=== PATIENT | male | born 1985 | race African-American/Black ===

== ENCOUNTER 2017-06-25 21:00 | Inpatient (IN) | payer MEDICAID ==
[2017-06-25] MEDS ORDERED: 0.9 % SODIUM CHLORIDE 10 ML DISP.SYRIN. IV (22:15)
[2017-06-25] MEDS: DULoxetine HCL 30 MG CAPSULE.DR PO (23:02)
[2017-06-25] MEDS: BACLOFEN 10 MG TABLET. PO (23:02)
[2017-06-25] MEDS: SERTRALINE 50 MG TABLET. PO (23:03)
[2017-06-25] MEDS: GABAPENTIN 300 MG CAPSULE. PO (23:03)
[2017-06-25] MEDS: traZODone 100 MG TABLET. PO (23:03)
[2017-06-25] MEDS: OXYBUTYNIN CHLORIDE 5 MG TABLET PO (23:03)
[2017-06-25] MEDS: risperiDONE 1 MG TABLET. PO (23:03)
[2017-06-25] MEDS: tiZANidine 4 MG TABLET. PO (23:04)
[2017-06-25] MEDS: oxyCODONE IR 5 MG TABLET PO (23:12)
[2017-06-26] MEDS: oxyCODONE IR 5 MG TABLET PO ×4 (04:05→22:44)
[2017-06-26] MEDS: BACLOFEN 10 MG TABLET. PO ×4 (08:22→21:19)
[2017-06-26] MEDS: GABAPENTIN 300 MG CAPSULE. PO ×4 (08:22→21:20)
[2017-06-26] MEDS: OXYBUTYNIN CHLORIDE 5 MG TABLET PO ×3 (08:22→21:20)
[2017-06-26] MEDS: LIDOCAINE (700MG/PATCH) PATCH. TP (08:23)
[2017-06-26] MEDS: tiZANidine 4 MG TABLET. PO ×2 (08:23→21:20)
[2017-06-26] MEDS: DULoxetine HCL 30 MG CAPSULE.DR PO ×2 (08:23→21:19)
[2017-06-26 09:46] LABS: ADD MAN DIFF? NO
[2017-06-26 10:06] LABS: BASO % 1 % (0-3); EOS # 0.1 x10^3/uL (0.0-0.7); EOS % 2 % (0-3); HEMATOCRIT 35.5 % (39.0-53.0); HEMOGLOBIN 11.3 g/dL (13.0-17.5); LYMPH # 0.9 x10^3/uL (1.0-4.8); LYMPH % 12 % (24-48); MEAN CORPUSCULAR HEMOGLOBIN 27 pg (25-35); MEAN CORPUSCULAR HGB CONC 32 g/dL (31-37); MEAN CORPUSCULAR VOLUME 84 fL (79-100); MONO # 0.7 x10^3/uL (0.0-1.1); MONO % 9 % (0-9); NEUT # 5.8 x10^3uL (1.8-7.7); NEUT % 77 % (31-73); PLATELET COUNT 344 x10^3/uL (140-400); RED BLOOD COUNT 4.24 x10^6/uL (4.30-5.70); RED CELL DISTRIBUTION WIDTH 17.4 % (11.5-14.5); WHITE BLOOD COUNT 7.6 x10^3/uL (4.0-11.0)
[2017-06-26 10:09] LABS: ANION GAP 10 (6-14); BLOOD UREA NITROGEN 6 mg/dL (8-26); CALCIUM 8.2 mg/dL (8.5-10.1); CARBON DIOXIDE 27 mmol/L (21-32); CHLORIDE 101 mmol/L (98-107); CREATININE 0.7 mg/dL (0.7-1.3); GFR 157.2; GLUCOSE 79 mg/dL (70-99); POTASSIUM 3.7 mmol/L (3.5-5.1); SODIUM 138 mmol/L (136-145)
[2017-06-26] MEDS ORDERED: VANCOMYCIN 1GM IVPB FOR OMNI 250 ML IV (10:30)
[2017-06-26] MEDS ORDERED: fentaNYL PF VIAL 100 MCG/2 ML VIAL IV (10:45)
[2017-06-26 10:57] LABS: SEDIMENTATION RATE 82 (0-15)
[2017-06-26] MEDS: DRONABINOL 2.5 MG CAPSULE. PO ×2 (11:03→16:19)
[2017-06-26] MEDS: MORPHINE SULFATE 2 MG/ML DISP.SYRIN. IV ×2 (11:03→12:55)
[2017-06-26] MEDS: VANCOMYCIN 1 GM in IV 1/2 NORMAL SALINE 250 ML IV (11:06)
[2017-06-26] MEDS: MEROPENEM IV Push 1 GM VIAL. IVP ×2 (13:02→22:43)
[2017-06-26 13:13] LABS: MRSA BY PCR Positive (Negative)
[2017-06-26] MEDS ORDERED: MEROPENEM 1 GM in IV NORMAL SALINE 100ML 100 ML IV (14:00)
[2017-06-26] MEDS: VANCOMYCIN PER PHARMACY MC (16:51)
[2017-06-26] MEDS: ENOXAPARIN 40 MG/0.4 ML SYRINGE. SQ (18:00)
[2017-06-26] MEDS: LACTOBACILLUS RHAMNOSUS GG 1 CAPSULE. PO (20:23)
[2017-06-26] MEDS: oxyCODONE ER 10 MG TAB.ER.12H PO (20:24)
[2017-06-26] MEDS ORDERED: LACTOBACILLUS RHAMNOSUS GG 1 CAPSULE. PO (21:00)
[2017-06-26] MEDS ORDERED: oxyCODONE ER 10 MG TAB.ER.12H PO (21:00)
[2017-06-26] MEDS: SERTRALINE 50 MG TABLET. PO (21:19)
[2017-06-26] MEDS: traZODone 100 MG TABLET. PO (21:19)
[2017-06-26] MEDS: risperiDONE 1 MG TABLET. PO (21:20)
[2017-06-26] MEDS: VANCOMYCIN 1.5 GM in IV DEXTROSE 5 %-0.2 % NACL 500 ML IV (21:22)
[2017-06-27] MEDS: MORPHINE SULFATE 2 MG/ML DISP.SYRIN. IV ×2 (01:38→21:38)
[2017-06-27] MEDS: MEROPENEM IV Push 1 GM VIAL. IVP ×3 (05:25→23:36)
[2017-06-27] MEDS: VANCOMYCIN 1.5 GM in IV DEXTROSE 5 %-0.2 % NACL 500 ML IV ×2 (09:21→20:49)
[2017-06-27] MEDS: LACTOBACILLUS RHAMNOSUS GG 1 CAPSULE. PO ×2 (09:24→20:47)
[2017-06-27] MEDS: BACLOFEN 10 MG TABLET. PO ×4 (09:24→20:46)
[2017-06-27] MEDS: DULoxetine HCL 30 MG CAPSULE.DR PO ×2 (09:24→20:46)
[2017-06-27] MEDS: GABAPENTIN 300 MG CAPSULE. PO ×4 (09:24→20:48)
[2017-06-27] MEDS: tiZANidine 4 MG TABLET. PO ×2 (09:25→20:48)
[2017-06-27] MEDS: OXYBUTYNIN CHLORIDE 5 MG TABLET PO ×3 (09:25→20:48)
[2017-06-27] MEDS: oxyCODONE ER 10 MG TAB.ER.12H PO ×2 (09:26→20:47)
[2017-06-27] MEDS: LIDOCAINE (700MG/PATCH) PATCH. TP (09:26)
[2017-06-27] MEDS: oxyCODONE IR 5 MG TABLET PO ×2 (09:30→18:34)
[2017-06-27] MEDS: DRONABINOL 2.5 MG CAPSULE. PO ×2 (13:08→18:34)
[2017-06-27] MEDS: KETOROLAC 15 MG/ML VIAL. IV (13:12)
[2017-06-27] MEDS: VANCOMYCIN PER PHARMACY MC ×2 (13:57→21:22)
[2017-06-27] MEDS: ENOXAPARIN 40 MG/0.4 ML SYRINGE. SQ (18:00)
[2017-06-27 20:39] LABS: VANC TR 10.4 mcg/mL (10.0-20.0)
[2017-06-27] MEDS: traZODone 100 MG TABLET. PO (20:46)
[2017-06-27] MEDS: risperiDONE 1 MG TABLET. PO (20:47)
[2017-06-27] MEDS: SERTRALINE 50 MG TABLET. PO (20:48)
[2017-06-27] MEDS: DOCUSATE SODIUM 100 MG CAPSULE. PO (21:36)
[2017-06-27] MEDS: MAGNESIUM HYDROXIDE 2,400 MG/30 ML ORAL.SUSP. PO (21:36)
[2017-06-28 05:13] LABS: ADD MAN DIFF? NO
[2017-06-28 05:56] LABS: ANION GAP 7 (6-14); BLOOD UREA NITROGEN 5 mg/dL (8-26); CARBON DIOXIDE 30 mmol/L (21-32); CHLORIDE 105 mmol/L (98-107); CREATININE 0.8 mg/dL (0.7-1.3); GFR 134.7; GLUCOSE 56 mg/dL (70-99); POTASSIUM 4.2 mmol/L (3.5-5.1); SODIUM 142 mmol/L (136-145)
[2017-06-28 06:09] LABS: BASO % 0 % (0-3); EOS # 0.2 x10^3/uL (0.0-0.7); EOS % 4 % (0-3); HEMATOCRIT 33.8 % (39.0-53.0); HEMOGLOBIN 10.8 g/dL (13.0-17.5); LYMPH # 1.3 x10^3/uL (1.0-4.8); LYMPH % 26 % (24-48); MEAN CORPUSCULAR HEMOGLOBIN 27 pg (25-35); MEAN CORPUSCULAR HGB CONC 32 g/dL (31-37); MEAN CORPUSCULAR VOLUME 84 fL (79-100); MONO # 0.4 x10^3/uL (0.0-1.1); MONO % 8 % (0-9); NEUT # 3.2 x10^3uL (1.8-7.7); NEUT % 63 % (31-73); PLATELET COUNT 330 x10^3/uL (140-400); RED BLOOD COUNT 4.02 x10^6/uL (4.30-5.70); RED CELL DISTRIBUTION WIDTH 17.4 % (11.5-14.5); WHITE BLOOD COUNT 5.1 x10^3/uL (4.0-11.0)
[2017-06-28] MEDS: MORPHINE SULFATE 2 MG/ML DISP.SYRIN. IV ×3 (06:22→19:48)
[2017-06-28] MEDS: MEROPENEM IV Push 1 GM VIAL. IVP ×3 (06:30→21:44)
[2017-06-28] MEDS ORDERED: ONDANSETRON PF 4 MG/2 ML VIAL. IV (07:00)
[2017-06-28] MEDS ORDERED: PROCHLORPERAZINE 10 MG/2 ML VIAL. IV (07:00)
[2017-06-28] MEDS ORDERED: fentaNYL PF VIAL 100 MCG/2 ML VIAL IV (07:00)
[2017-06-28] MEDS ORDERED: MORPHINE SULFATE 2 MG/ML DISP.SYRIN. IV (07:00)
[2017-06-28] MEDS ORDERED: IV RINGERS,LACTATED 1000ML 1,000 ML IV (07:00)
[2017-06-28] MEDS: VANCOMYCIN 2 GM in IV DEXTROSE 5 %-0.2 % NACL 500 ML IV ×2 (07:31→18:24)
[2017-06-28] MEDS: OXYBUTYNIN CHLORIDE 5 MG TABLET PO ×3 (08:27→21:42)
[2017-06-28] MEDS: GABAPENTIN 300 MG CAPSULE. PO ×4 (08:27→21:42)
[2017-06-28] MEDS: tiZANidine 4 MG TABLET. PO ×2 (08:27→21:42)
[2017-06-28] MEDS: LACTOBACILLUS RHAMNOSUS GG 1 CAPSULE. PO ×2 (08:28→21:41)
[2017-06-28] MEDS: DOCUSATE SODIUM 100 MG CAPSULE. PO ×2 (08:28→09:00)
[2017-06-28] MEDS: BACLOFEN 10 MG TABLET. PO ×4 (08:28→21:43)
[2017-06-28] MEDS: DULoxetine HCL 30 MG CAPSULE.DR PO ×2 (08:28→21:42)
[2017-06-28] MEDS: oxyCODONE ER 10 MG TAB.ER.12H PO ×2 (08:29→21:44)
[2017-06-28] MEDS: LIDOCAINE (700MG/PATCH) PATCH. TP (09:00)
[2017-06-28] MEDS: DRONABINOL 2.5 MG CAPSULE. PO ×2 (11:30→17:18)
[2017-06-28] MEDS ORDERED: ONDANSETRON PF 4 MG/2 ML VIAL. (11:55)
[2017-06-28] MEDS ORDERED: PROPOFOL 20 ML IV (11:55)
[2017-06-28] MEDS ORDERED: fentaNYL PF VIAL 100 MCG/2 ML VIAL ×2 (11:55→14:44)
[2017-06-28] MEDS ORDERED: MIDAZOLAM HCL/PF 2 MG/2 ML VIAL. (11:55)
[2017-06-28] MEDS ORDERED: DEXAMETHASONE SOD PHOS 20 MG/5 ML VIAL. (11:55)
[2017-06-28] MEDS ORDERED: LIDOCAINE 2% PF Vial for OR 5 ML VIAL. (11:55)
[2017-06-28] MEDS: LIDOCAINE 1% PF 2 ML VIAL. ID (12:50)
[2017-06-28] MEDS: IV RINGERS,LACTATED 1000ML 1,000 ML IV (13:00)
[2017-06-28] MEDS ORDERED: SEVOFLURANE 61 TO 120 MINUTES. IH (13:54)
[2017-06-28] MEDS ORDERED: PHENYLEPHRINE in 0.9% NACL PF 1 MG/10 ML SYRINGE. IV (14:08)
[2017-06-28] MEDS: fentaNYL PF VIAL 100 MCG/2 ML VIAL IV ×2 (14:49→14:54)
[2017-06-28] MEDS ORDERED: HYDROmorphone 2 MG/ML VIAL (15:01)
[2017-06-28] MEDS: HYDROmorphone 2 MG/ML VIAL IV ×4 (15:05→15:25)
[2017-06-28] MEDS: VANCOMYCIN PER PHARMACY MC (15:45)
[2017-06-28] MEDS: IV NORMAL SALINE 1000ML BAG 1,000 ML IV (16:06)
[2017-06-28] MEDS: oxyCODONE IR 5 MG TABLET PO (18:29)
[2017-06-28] MEDS: traZODone 100 MG TABLET. PO (21:42)
[2017-06-28] MEDS: risperiDONE 1 MG TABLET. PO (21:42)
[2017-06-28] MEDS: SERTRALINE 50 MG TABLET. PO (21:43)
[2017-06-29] MEDS: oxyCODONE IR 5 MG TABLET PO ×4 (02:18→22:03)
[2017-06-29] MEDS: MEROPENEM IV Push 1 GM VIAL. IVP ×3 (06:42→21:16)
[2017-06-29] MEDS: VANCOMYCIN 2 GM in IV DEXTROSE 5 %-0.2 % NACL 500 ML IV ×2 (06:43→19:16)
[2017-06-29 06:45] LABS: ADD MAN DIFF? NO
[2017-06-29] MEDS: MORPHINE SULFATE 2 MG/ML DISP.SYRIN. IV ×2 (06:54→19:17)
[2017-06-29 06:57] LABS: BASO % 0 % (0-3); EOS % 0 % (0-3); HEMATOCRIT 32.5 % (39.0-53.0); HEMOGLOBIN 10.5 g/dL (13.0-17.5); LYMPH # 1.1 x10^3/uL (1.0-4.8); LYMPH % 14 % (24-48); MEAN CORPUSCULAR HEMOGLOBIN 27 pg (25-35); MEAN CORPUSCULAR HGB CONC 32 g/dL (31-37); MEAN CORPUSCULAR VOLUME 83 fL (79-100); MONO # 0.3 x10^3/uL (0.0-1.1); MONO % 4 % (0-9); NEUT # 6.4 x10^3uL (1.8-7.7); NEUT % 82 % (31-73); PLATELET COUNT 361 x10^3/uL (140-400); RED CELL DISTRIBUTION WIDTH 17.3 % (11.5-14.5); WHITE BLOOD COUNT 7.8 x10^3/uL (4.0-11.0)
[2017-06-29 07:19] LABS: ALBUMIN 1.8 g/dL (3.4-5.0); ANION GAP 6 (6-14); BLOOD UREA NITROGEN 6 mg/dL (8-26); CALCIUM 7.9 mg/dL (8.5-10.1); CARBON DIOXIDE 30 mmol/L (21-32); CHLORIDE 104 mmol/L (98-107); CREATININE 0.7 mg/dL (0.7-1.3); GFR 157.2; GLUCOSE 136 mg/dL (70-99); PHOSPHORUS 3.6 mg/dL (2.6-4.7); POTASSIUM 4.3 mmol/L (3.5-5.1); SODIUM 140 mmol/L (136-145)
[2017-06-29] MEDS: DULoxetine HCL 30 MG CAPSULE.DR PO ×2 (08:51→21:17)
[2017-06-29] MEDS: LACTOBACILLUS RHAMNOSUS GG 1 CAPSULE. PO ×2 (08:52→21:17)
[2017-06-29] MEDS: BACLOFEN 10 MG TABLET. PO ×4 (08:52→21:17)
[2017-06-29] MEDS: GABAPENTIN 300 MG CAPSULE. PO ×4 (08:52→21:17)
[2017-06-29] MEDS: tiZANidine 4 MG TABLET. PO ×2 (08:52→21:16)
[2017-06-29] MEDS: DOCUSATE SODIUM 100 MG CAPSULE. PO (08:52)
[2017-06-29] MEDS: oxyCODONE ER 10 MG TAB.ER.12H PO ×2 (08:52→21:18)
[2017-06-29] MEDS: OXYBUTYNIN CHLORIDE 5 MG TABLET PO ×3 (08:52→21:17)
[2017-06-29] MEDS: ENOXAPARIN 40 MG/0.4 ML SYRINGE. SQ (08:53)
[2017-06-29] MEDS: LIDOCAINE (700MG/PATCH) PATCH. TP (08:53)
[2017-06-29] MEDS: DRONABINOL 2.5 MG CAPSULE. PO ×2 (11:53→16:35)
[2017-06-29] MEDS: VANCOMYCIN PER PHARMACY MC ×2 (15:32→19:30)
[2017-06-29 18:51] LABS: VANC TR 13.9 mcg/mL (10.0-20.0)
[2017-06-29] MEDS: SERTRALINE 50 MG TABLET. PO (21:17)
[2017-06-29] MEDS: risperiDONE 1 MG TABLET. PO (21:17)
[2017-06-29] MEDS: traZODone 100 MG TABLET. PO (21:17)
[2017-06-29] MEDS: MAGNESIUM HYDROXIDE 2,400 MG/30 ML ORAL.SUSP. PO (21:19)
[2017-06-30] MEDS: VANCOMYCIN 1.5 GM in IV DEXTROSE 5 %-0.2 % NACL 500 ML IV ×3 (03:41→19:39)
[2017-06-30 04:59] LABS: ADD MAN DIFF? NO
[2017-06-30 05:11] LABS: BASO % 1 % (0-3); EOS # 0.2 x10^3/uL (0.0-0.7); EOS % 3 % (0-3); HEMATOCRIT 33.4 % (39.0-53.0); HEMOGLOBIN 10.6 g/dL (13.0-17.5); LYMPH # 1.8 x10^3/uL (1.0-4.8); LYMPH % 29 % (24-48); MEAN CORPUSCULAR HEMOGLOBIN 27 pg (25-35); MEAN CORPUSCULAR HGB CONC 32 g/dL (31-37); MEAN CORPUSCULAR VOLUME 84 fL (79-100); MONO # 0.4 x10^3/uL (0.0-1.1); MONO % 7 % (0-9); NEUT # 3.9 x10^3uL (1.8-7.7); NEUT % 62 % (31-73); PLATELET COUNT 323 x10^3/uL (140-400); RED BLOOD COUNT 3.96 x10^6/uL (4.30-5.70); RED CELL DISTRIBUTION WIDTH 17.3 % (11.5-14.5); WHITE BLOOD COUNT 6.4 x10^3/uL (4.0-11.0)
[2017-06-30 05:59] LABS: ANION GAP 7 (6-14); BLOOD UREA NITROGEN 7 mg/dL (8-26); CALCIUM 8.3 mg/dL (8.5-10.1); CARBON DIOXIDE 32 mmol/L (21-32); CHLORIDE 103 mmol/L (98-107); CREATININE 0.8 mg/dL (0.7-1.3); GFR 134.7; GLUCOSE 135 mg/dL (70-99); POTASSIUM 3.6 mmol/L (3.5-5.1); SODIUM 142 mmol/L (136-145)
[2017-06-30] MEDS: oxyCODONE IR 5 MG TABLET PO ×3 (06:04→20:56)
[2017-06-30] MEDS: MEROPENEM IV Push 1 GM VIAL. IVP ×3 (06:04→20:55)
[2017-06-30 07:10] LABS: SEDIMENTATION RATE 45 (0-15)
[2017-06-30] MEDS: OXYBUTYNIN CHLORIDE 5 MG TABLET PO ×3 (08:48→20:57)
[2017-06-30] MEDS: LACTOBACILLUS RHAMNOSUS GG 1 CAPSULE. PO ×2 (08:48→20:56)
[2017-06-30] MEDS: DULoxetine HCL 30 MG CAPSULE.DR PO ×2 (08:49→20:56)
[2017-06-30] MEDS: oxyCODONE ER 10 MG TAB.ER.12H PO ×2 (08:49→20:56)
[2017-06-30] MEDS: BACLOFEN 10 MG TABLET. PO ×4 (08:49→20:55)
[2017-06-30] MEDS: GABAPENTIN 300 MG CAPSULE. PO ×4 (08:49→20:55)
[2017-06-30] MEDS: tiZANidine 4 MG TABLET. PO ×2 (08:49→20:57)
[2017-06-30] MEDS: ENOXAPARIN 40 MG/0.4 ML SYRINGE. SQ (08:52)
[2017-06-30] MEDS: DOCUSATE SODIUM 100 MG CAPSULE. PO (08:54)
[2017-06-30] MEDS: LIDOCAINE (700MG/PATCH) PATCH. TP (08:54)
[2017-06-30] MEDS: DRONABINOL 2.5 MG CAPSULE. PO ×2 (11:39→16:27)
[2017-06-30] MEDS: VANCOMYCIN PER PHARMACY MC (13:45)
[2017-06-30] MEDS: IBUPROFEN 600 MG TABLET. PO ×2 (14:17→20:57)
[2017-06-30] MEDS: MORPHINE SULFATE 2 MG/ML DISP.SYRIN. IV (14:18)
[2017-06-30] MEDS: BISACODYL 10 MG SUPP.RECT. PR (17:35)
[2017-06-30] MEDS: risperiDONE 1 MG TABLET. PO (20:55)
[2017-06-30] MEDS: SERTRALINE 50 MG TABLET. PO (20:55)
[2017-06-30] MEDS: traZODone 100 MG TABLET. PO (20:57)
[2017-07-01] MEDS: VANCOMYCIN 1.5 GM in IV DEXTROSE 5 %-0.2 % NACL 500 ML IV ×3 (03:21→21:02)
[2017-07-01] MEDS: MEROPENEM IV Push 1 GM VIAL. IVP ×3 (05:53→21:02)
[2017-07-01] MEDS: oxyCODONE IR 5 MG TABLET PO ×2 (05:54→17:06)
[2017-07-01] MEDS ORDERED: SURGICEL HEMOSTAT 4X8 EACH. (08:41)
[2017-07-01] MEDS: IBUPROFEN 600 MG TABLET. PO (09:00)
[2017-07-01] MEDS: LIDOCAINE (700MG/PATCH) PATCH. TP (09:00)
[2017-07-01] MEDS: ENOXAPARIN 40 MG/0.4 ML SYRINGE. SQ (09:00)
[2017-07-01] MEDS: DOCUSATE SODIUM 100 MG CAPSULE. PO ×3 (09:00→21:00)
[2017-07-01] MEDS: POLYETHYLENE GLYCOL 3350 17 GM PACKET. PO (10:17)
[2017-07-01] MEDS: ASCORBIC ACID 500 MG TABLET PO (10:43)
[2017-07-01] MEDS: LACTOBACILLUS RHAMNOSUS GG 1 CAPSULE. PO ×2 (10:43→21:04)
[2017-07-01] MEDS: OXYBUTYNIN CHLORIDE 5 MG TABLET PO ×3 (10:43→21:03)
[2017-07-01] MEDS: oxyCODONE ER 10 MG TAB.ER.12H PO ×2 (10:43→21:04)
[2017-07-01] MEDS: BACLOFEN 10 MG TABLET. PO ×4 (10:43→21:03)
[2017-07-01] MEDS: GABAPENTIN 300 MG CAPSULE. PO ×4 (10:43→21:03)
[2017-07-01] MEDS: tiZANidine 4 MG TABLET. PO ×2 (10:43→21:04)
[2017-07-01] MEDS: DULoxetine HCL 30 MG CAPSULE.DR PO ×2 (10:44→21:03)
[2017-07-01] MEDS: DRONABINOL 2.5 MG CAPSULE. PO ×2 (10:46→17:06)
[2017-07-01] MEDS: MORPHINE SULFATE 2 MG/ML DISP.SYRIN. IV ×2 (10:50→13:03)
[2017-07-01] MEDS: IV NORMAL SALINE 1000ML BAG 1,000 ML IV ×2 (11:30→13:04)
[2017-07-01] MEDS: VANCOMYCIN PER PHARMACY MC (14:25)
[2017-07-01] MEDS: traZODone 100 MG TABLET. PO (21:03)
[2017-07-01] MEDS: SERTRALINE 50 MG TABLET. PO (21:04)
[2017-07-01] MEDS: risperiDONE 1 MG TABLET. PO (21:04)
[2017-07-02] MEDS: MORPHINE SULFATE 2 MG/ML DISP.SYRIN. IV ×3 (00:45→11:55)
[2017-07-02] MEDS: IV NORMAL SALINE 1000ML BAG 1,000 ML IV ×3 (00:45→17:30)
[2017-07-02 04:34] LABS: ADD MAN DIFF? NO
[2017-07-02 04:40] LABS: BASO % 1 % (0-3); EOS # 0.3 x10^3/uL (0.0-0.7); EOS % 4 % (0-3); HEMATOCRIT 32.3 % (39.0-53.0); HEMOGLOBIN 10.4 g/dL (13.0-17.5); LYMPH # 1.6 x10^3/uL (1.0-4.8); LYMPH % 23 % (24-48); MEAN CORPUSCULAR HEMOGLOBIN 27 pg (25-35); MEAN CORPUSCULAR HGB CONC 32 g/dL (31-37); MEAN CORPUSCULAR VOLUME 84 fL (79-100); MONO # 0.4 x10^3/uL (0.0-1.1); MONO % 6 % (0-9); NEUT # 4.5 x10^3uL (1.8-7.7); NEUT % 66 % (31-73); PLATELET COUNT 325 x10^3/uL (140-400); RED BLOOD COUNT 3.86 x10^6/uL (4.30-5.70); RED CELL DISTRIBUTION WIDTH 17.5 % (11.5-14.5); WHITE BLOOD COUNT 6.8 x10^3/uL (4.0-11.0)
[2017-07-02] MEDS: MEROPENEM IV Push 1 GM VIAL. IVP ×3 (05:11→20:41)
[2017-07-02] MEDS: VANCOMYCIN 1.5 GM in IV DEXTROSE 5 %-0.2 % NACL 500 ML IV ×3 (05:11→20:40)
[2017-07-02 05:17] LABS: ANION GAP 8 (6-14); BLOOD UREA NITROGEN 10 mg/dL (8-26); CALCIUM 8.4 mg/dL (8.5-10.1); CARBON DIOXIDE 30 mmol/L (21-32); CHLORIDE 103 mmol/L (98-107); CREATININE 0.7 mg/dL (0.7-1.3); GFR 157.2; GLUCOSE 109 mg/dL (70-99); POTASSIUM 4.3 mmol/L (3.5-5.1); SODIUM 141 mmol/L (136-145)
[2017-07-02] MEDS: DULoxetine HCL 30 MG CAPSULE.DR PO ×2 (08:00→20:39)
[2017-07-02] MEDS: ASCORBIC ACID 500 MG TABLET PO (08:00)
[2017-07-02] MEDS: oxyCODONE IR 5 MG TABLET PO ×3 (08:00→17:50)
[2017-07-02] MEDS: tiZANidine 4 MG TABLET. PO ×2 (08:00→20:40)
[2017-07-02] MEDS: LACTOBACILLUS RHAMNOSUS GG 1 CAPSULE. PO ×2 (08:00→20:36)
[2017-07-02] MEDS: OXYBUTYNIN CHLORIDE 5 MG TABLET PO ×3 (08:01→20:36)
[2017-07-02] MEDS: DOCUSATE SODIUM 100 MG CAPSULE. PO ×2 (08:01→20:40)
[2017-07-02] MEDS: POLYETHYLENE GLYCOL 3350 17 GM PACKET. PO (08:01)
[2017-07-02] MEDS: ENOXAPARIN 40 MG/0.4 ML SYRINGE. SQ (08:02)
[2017-07-02] MEDS: LIDOCAINE (700MG/PATCH) PATCH. TP (08:02)
[2017-07-02] MEDS: NICOTINE 14MG PATCH. TD (08:02)
[2017-07-02] MEDS: BACLOFEN 10 MG TABLET. PO ×4 (09:11→20:37)
[2017-07-02] MEDS: oxyCODONE ER 10 MG TAB.ER.12H PO ×2 (09:11→20:38)
[2017-07-02] MEDS: DRONABINOL 2.5 MG CAPSULE. PO ×2 (11:55→17:50)
[2017-07-02] MEDS: GABAPENTIN 300 MG CAPSULE. PO ×4 (11:55→20:40)
[2017-07-02] MEDS: TESTOSTERONE CYPIONATE 200 MG/ML VIAL. IM (11:56)
[2017-07-02] MEDS: VANCOMYCIN PER PHARMACY MC (13:01)
[2017-07-02] MEDS: ACETAMINOPHEN 325 MG TABLET. PO ×2 (15:27→20:36)
[2017-07-02] MEDS: HYDROmorphone 2 MG/ML VIAL IVP ×2 (15:28→20:55)
[2017-07-02] MEDS ORDERED: NICOTINE POLACRILEX 2MG GUM PACKAGE of 12. BC (17:30)
[2017-07-02] MEDS: LORazepam 1 MG TABLET PO (17:50)
[2017-07-02] MEDS: NICOTINE 21MG PATCH. TD (18:00)
[2017-07-02] MEDS: risperiDONE 1 MG TABLET. PO (20:39)
[2017-07-02] MEDS: SERTRALINE 50 MG TABLET. PO (20:40)
[2017-07-02] MEDS: traZODone 100 MG TABLET. PO (20:40)
[2017-07-03] MEDS: VANCOMYCIN 1.5 GM in IV DEXTROSE 5 %-0.2 % NACL 500 ML IV ×3 (03:48→19:33)
[2017-07-03] MEDS: oxyCODONE IR 5 MG TABLET PO ×2 (04:11→14:32)
[2017-07-03] MEDS: MEROPENEM IV Push 1 GM VIAL. IVP ×3 (06:12→23:19)
[2017-07-03] MEDS: HYDROmorphone 2 MG/ML VIAL IVP ×5 (06:12→23:43)
[2017-07-03 07:16] LABS: ADD MAN DIFF? NO
[2017-07-03 07:22] LABS: BASO # 0.1 x10^3/uL (0.0-0.2); BASO % 1 % (0-3); EOS # 0.4 x10^3/uL (0.0-0.7); EOS % 7 % (0-3); LYMPH # 1.4 x10^3/uL (1.0-4.8); LYMPH % 25 % (24-48); MEAN CORPUSCULAR HEMOGLOBIN 26 pg (25-35); MEAN CORPUSCULAR HGB CONC 31 g/dL (31-37); MEAN CORPUSCULAR VOLUME 84 fL (79-100); MONO # 0.4 x10^3/uL (0.0-1.1); MONO % 7 % (0-9); NEUT # 3.5 x10^3uL (1.8-7.7); NEUT % 60 % (31-73); PLATELET COUNT 308 x10^3/uL (140-400); RED BLOOD COUNT 4.17 x10^6/uL (4.30-5.70); RED CELL DISTRIBUTION WIDTH 18.2 % (11.5-14.5); WHITE BLOOD COUNT 5.7 x10^3/uL (4.0-11.0)
[2017-07-03 07:31] LABS: ALBUMIN 2.2 g/dL (3.4-5.0); ALBUMIN/GLOBULIN RATIO 0.5 (1.0-1.7); ALK PHOS 61 U/L (46-116); ALT (SGPT) 15 U/L (16-63); ANION GAP 6 (6-14); AST (SGOT) 11 U/L (15-37); BLOOD UREA NITROGEN 7 mg/dL (8-26); BUN/CREATININE RATIO 9 (6-20); CALCIUM 8.5 mg/dL (8.5-10.1); CARBON DIOXIDE 33 mmol/L (21-32); CHLORIDE 103 mmol/L (98-107); CREATININE 0.8 mg/dL (0.7-1.3); GFR 134.7; GLUCOSE 95 mg/dL (70-99); POTASSIUM 4.1 mmol/L (3.5-5.1); SODIUM 142 mmol/L (136-145); TOTAL BILIRUBIN 0.2 mg/dL (0.2-1.0)
[2017-07-03] MEDS: LIDOCAINE (700MG/PATCH) PATCH. TP (09:00)
[2017-07-03] MEDS: DOCUSATE SODIUM 100 MG CAPSULE. PO ×2 (09:00→22:56)
[2017-07-03] MEDS: IV NORMAL SALINE 1000ML BAG 1,000 ML IV (09:03)
[2017-07-03] MEDS: LACTOBACILLUS RHAMNOSUS GG 1 CAPSULE. PO ×2 (09:04→22:56)
[2017-07-03] MEDS: OXYBUTYNIN CHLORIDE 5 MG TABLET PO ×3 (09:05→22:57)
[2017-07-03] MEDS: DULoxetine HCL 30 MG CAPSULE.DR PO ×2 (09:05→22:57)
[2017-07-03] MEDS: POLYETHYLENE GLYCOL 3350 17 GM PACKET. PO (09:06)
[2017-07-03] MEDS: BACLOFEN 10 MG TABLET. PO ×4 (09:06→22:57)
[2017-07-03] MEDS: oxyCODONE ER 10 MG TAB.ER.12H PO ×2 (09:07→22:58)
[2017-07-03] MEDS: ASCORBIC ACID 500 MG TABLET PO (09:08)
[2017-07-03] MEDS: ACETAMINOPHEN 325 MG TABLET. PO ×3 (09:08→23:11)
[2017-07-03] MEDS: ENOXAPARIN 40 MG/0.4 ML SYRINGE. SQ (09:09)
[2017-07-03] MEDS: tiZANidine 4 MG TABLET. PO ×2 (09:09→22:56)
[2017-07-03] MEDS: NICOTINE 14MG PATCH. TD (09:10)
[2017-07-03] MEDS: NICOTINE 21MG PATCH. TD (09:10)
[2017-07-03] MEDS: GABAPENTIN 300 MG CAPSULE. PO ×4 (09:12→22:56)
[2017-07-03] MEDS: DRONABINOL 2.5 MG CAPSULE. PO ×2 (12:01→16:49)
[2017-07-03] MEDS: VANCOMYCIN PER PHARMACY MC (17:10)
[2017-07-03] MEDS: risperiDONE 1 MG TABLET. PO (22:57)
[2017-07-03] MEDS: traZODone 100 MG TABLET. PO (22:57)
[2017-07-03] MEDS: SERTRALINE 50 MG TABLET. PO (22:57)
[2017-07-04] MEDS: VANCOMYCIN 1.5 GM in IV DEXTROSE 5 %-0.2 % NACL 500 ML IV ×3 (03:59→20:08)
[2017-07-04] MEDS: oxyCODONE IR 5 MG TABLET PO ×3 (04:18→17:27)
[2017-07-04] MEDS: MEROPENEM IV Push 1 GM VIAL. IVP ×3 (06:10→21:48)
[2017-07-04] MEDS: LACTOBACILLUS RHAMNOSUS GG 1 CAPSULE. PO ×2 (08:14→21:45)
[2017-07-04] MEDS: DOCUSATE SODIUM 100 MG CAPSULE. PO ×2 (08:14→21:45)
[2017-07-04] MEDS: OXYBUTYNIN CHLORIDE 5 MG TABLET PO ×3 (08:15→21:47)
[2017-07-04] MEDS: DULoxetine HCL 30 MG CAPSULE.DR PO ×2 (08:15→21:46)
[2017-07-04] MEDS: BACLOFEN 10 MG TABLET. PO ×4 (08:16→21:47)
[2017-07-04] MEDS: POLYETHYLENE GLYCOL 3350 17 GM PACKET. PO (08:16)
[2017-07-04] MEDS: oxyCODONE ER 10 MG TAB.ER.12H PO ×2 (08:17→21:48)
[2017-07-04] MEDS: ACETAMINOPHEN 325 MG TABLET. PO ×3 (08:18→21:46)
[2017-07-04] MEDS: ASCORBIC ACID 500 MG TABLET PO (08:18)
[2017-07-04] MEDS: tiZANidine 4 MG TABLET. PO ×2 (08:18→21:46)
[2017-07-04] MEDS: ENOXAPARIN 40 MG/0.4 ML SYRINGE. SQ (08:19)
[2017-07-04] MEDS: NICOTINE 14MG PATCH. TD (08:20)
[2017-07-04] MEDS: GABAPENTIN 300 MG CAPSULE. PO ×4 (08:20→21:47)
[2017-07-04] MEDS: LIDOCAINE (700MG/PATCH) PATCH. TP (08:20)
[2017-07-04] MEDS: HYDROmorphone 2 MG/ML VIAL IVP ×3 (08:22→20:07)
[2017-07-04] MEDS: NICOTINE 21MG PATCH. TD (09:00)
[2017-07-04] MEDS: DRONABINOL 2.5 MG CAPSULE. PO ×2 (11:27→17:24)
[2017-07-04] MEDS: LORazepam 1 MG TABLET PO (12:06)
[2017-07-04] MEDS: VANCOMYCIN PER PHARMACY MC (15:31)
[2017-07-04] MEDS: risperiDONE 1 MG TABLET. PO (21:46)
[2017-07-04] MEDS: traZODone 100 MG TABLET. PO (21:46)
[2017-07-04] MEDS: SERTRALINE 50 MG TABLET. PO (21:47)
[2017-07-05] MEDS: VANCOMYCIN 1.5 GM in IV DEXTROSE 5 %-0.2 % NACL 500 ML IV ×3 (04:17→20:50)
[2017-07-05] MEDS: MEROPENEM IV Push 1 GM VIAL. IVP ×3 (05:46→20:50)
[2017-07-05] MEDS: HYDROmorphone 2 MG/ML VIAL IVP ×2 (05:47→20:05)
[2017-07-05] MEDS: ENOXAPARIN 40 MG/0.4 ML SYRINGE. SQ (09:00)
[2017-07-05] MEDS: POLYETHYLENE GLYCOL 3350 17 GM PACKET. PO (09:00)
[2017-07-05] MEDS: LIDOCAINE (700MG/PATCH) PATCH. TP (09:00)
[2017-07-05] MEDS: NICOTINE 14MG PATCH. TD (10:21)
[2017-07-05] MEDS: OXYBUTYNIN CHLORIDE 5 MG TABLET PO ×3 (10:21→20:51)
[2017-07-05] MEDS: DOCUSATE SODIUM 100 MG CAPSULE. PO ×2 (10:21→20:52)
[2017-07-05] MEDS: BACLOFEN 10 MG TABLET. PO ×4 (10:22→20:51)
[2017-07-05] MEDS: GABAPENTIN 300 MG CAPSULE. PO ×4 (10:22→20:51)
[2017-07-05] MEDS: LACTOBACILLUS RHAMNOSUS GG 1 CAPSULE. PO ×2 (10:22→20:50)
[2017-07-05] MEDS: ASCORBIC ACID 500 MG TABLET PO (10:22)
[2017-07-05] MEDS: DULoxetine HCL 30 MG CAPSULE.DR PO ×2 (10:24→20:51)
[2017-07-05] MEDS: tiZANidine 4 MG TABLET. PO ×2 (10:24→20:51)
[2017-07-05] MEDS: oxyCODONE ER 10 MG TAB.ER.12H PO ×2 (10:25→20:51)
[2017-07-05] MEDS: DRONABINOL 2.5 MG CAPSULE. PO ×2 (10:25→16:31)
[2017-07-05] MEDS: ACETAMINOPHEN 325 MG TABLET. PO ×3 (12:17→20:51)
[2017-07-05] MEDS: VANCOMYCIN PER PHARMACY MC (15:38)
[2017-07-05] MEDS: risperiDONE 1 MG TABLET. PO (20:50)
[2017-07-05] MEDS: traZODone 100 MG TABLET. PO (20:50)
[2017-07-05] MEDS: SERTRALINE 50 MG TABLET. PO (20:51)
[2017-07-06] MEDS: VANCOMYCIN 1.5 GM in IV DEXTROSE 5 %-0.2 % NACL 500 ML IV ×3 (03:42→21:02)
[2017-07-06] MEDS: MEROPENEM IV Push 1 GM VIAL. IVP ×3 (05:58→23:22)
[2017-07-06] MEDS: HYDROmorphone 2 MG/ML VIAL IVP ×6 (06:02→22:18)
[2017-07-06] MEDS: LIDOCAINE (700MG/PATCH) PATCH. TP (09:00)
[2017-07-06] MEDS: POLYETHYLENE GLYCOL 3350 17 GM PACKET. PO (09:00)
[2017-07-06] MEDS: ENOXAPARIN 40 MG/0.4 ML SYRINGE. SQ (09:00)
[2017-07-06] MEDS: DULoxetine HCL 30 MG CAPSULE.DR PO ×2 (09:48→21:27)
[2017-07-06] MEDS: tiZANidine 4 MG TABLET. PO ×2 (09:48→21:28)
[2017-07-06] MEDS: OXYBUTYNIN CHLORIDE 5 MG TABLET PO ×3 (09:48→21:27)
[2017-07-06] MEDS: ACETAMINOPHEN 325 MG TABLET. PO ×3 (09:48→21:27)
[2017-07-06] MEDS: ASCORBIC ACID 500 MG TABLET PO (09:48)
[2017-07-06] MEDS: DOCUSATE SODIUM 100 MG CAPSULE. PO ×2 (09:48→21:27)
[2017-07-06] MEDS: LACTOBACILLUS RHAMNOSUS GG 1 CAPSULE. PO ×2 (09:48→21:28)
[2017-07-06] MEDS: GABAPENTIN 300 MG CAPSULE. PO ×4 (09:49→21:26)
[2017-07-06] MEDS: NICOTINE 14MG PATCH. TD (09:49)
[2017-07-06] MEDS: oxyCODONE ER 10 MG TAB.ER.12H PO ×2 (09:49→21:27)
[2017-07-06] MEDS: BACLOFEN 10 MG TABLET. PO ×4 (09:49→21:28)
[2017-07-06] MEDS: PARoxetine 10 MG TABLET PO (11:15)
[2017-07-06] MEDS: DRONABINOL 2.5 MG CAPSULE. PO ×2 (11:15→17:17)
[2017-07-06] MEDS: oxyCODONE IR 5 MG TABLET PO (17:17)
[2017-07-06] MEDS: traZODone 100 MG TABLET. PO (21:26)
[2017-07-06] MEDS: risperiDONE 1 MG TABLET. PO (21:26)
[2017-07-06] MEDS: SERTRALINE 50 MG TABLET. PO (21:27)
[2017-07-07] MEDS: HYDROmorphone 2 MG/ML VIAL IVP ×7 (01:21→22:56)
[2017-07-07] MEDS: LORazepam 1 MG TABLET PO (01:21)
[2017-07-07] MEDS: MEROPENEM IV Push 1 GM VIAL. IVP ×3 (05:06→21:23)
[2017-07-07] MEDS: VANCOMYCIN 1.5 GM in IV DEXTROSE 5 %-0.2 % NACL 500 ML IV ×2 (05:06→11:47)
[2017-07-07 05:50] LABS: HEMATOCRIT 33.2 % (39.0-53.0); HEMOGLOBIN 10.5 g/dL (13.0-17.5); MEAN CORPUSCULAR HEMOGLOBIN 27 pg (25-35); MEAN CORPUSCULAR HGB CONC 32 g/dL (31-37); MEAN CORPUSCULAR VOLUME 84 fL (79-100); PLATELET COUNT 330 x10^3/uL (140-400); RED BLOOD COUNT 3.95 x10^6/uL (4.30-5.70); RED CELL DISTRIBUTION WIDTH 18.7 % (11.5-14.5); WHITE BLOOD COUNT 6.7 x10^3/uL (4.0-11.0)
[2017-07-07 06:33] LABS: ANION GAP 5 (6-14); BLOOD UREA NITROGEN 12 mg/dL (8-26); CALCIUM 8.2 mg/dL (8.5-10.1); CARBON DIOXIDE 32 mmol/L (21-32); CHLORIDE 103 mmol/L (98-107); CREATININE 0.7 mg/dL (0.7-1.3); GFR 157.2; GLUCOSE 99 mg/dL (70-99); POTASSIUM 3.9 mmol/L (3.5-5.1); SODIUM 140 mmol/L (136-145)
[2017-07-07] MEDS: oxyCODONE ER 10 MG TAB.ER.12H PO ×2 (08:29→21:23)
[2017-07-07] MEDS: BACLOFEN 10 MG TABLET. PO ×4 (08:29→21:21)
[2017-07-07] MEDS: LACTOBACILLUS RHAMNOSUS GG 1 CAPSULE. PO ×2 (08:30→21:21)
[2017-07-07] MEDS: OXYBUTYNIN CHLORIDE 5 MG TABLET PO ×3 (08:30→21:22)
[2017-07-07] MEDS: DULoxetine HCL 30 MG CAPSULE.DR PO ×2 (08:30→21:21)
[2017-07-07] MEDS: NICOTINE 14MG PATCH. TD (08:30)
[2017-07-07] MEDS: GABAPENTIN 300 MG CAPSULE. PO ×4 (08:30→21:21)
[2017-07-07] MEDS: DOCUSATE SODIUM 100 MG CAPSULE. PO ×2 (08:30→21:21)
[2017-07-07] MEDS: tiZANidine 4 MG TABLET. PO ×2 (08:30→21:22)
[2017-07-07] MEDS: ACETAMINOPHEN 500 MG TABLET PO (08:30)
[2017-07-07] MEDS: PARoxetine 10 MG TABLET PO (08:30)
[2017-07-07] MEDS: ASCORBIC ACID 500 MG TABLET PO (08:30)
[2017-07-07] MEDS: ACETAMINOPHEN 325 MG TABLET. PO ×3 (09:00→21:00)
[2017-07-07] MEDS: POLYETHYLENE GLYCOL 3350 17 GM PACKET. PO (09:00)
[2017-07-07] MEDS: LIDOCAINE (700MG/PATCH) PATCH. TP (09:00)
[2017-07-07] MEDS: ENOXAPARIN 40 MG/0.4 ML SYRINGE. SQ (09:00)
[2017-07-07] MEDS: DRONABINOL 2.5 MG CAPSULE. PO ×2 (11:46→16:16)
[2017-07-07] MEDS: oxyCODONE IR 5 MG TABLET PO (11:46)
[2017-07-07] MEDS: VANCOMYCIN PER PHARMACY MC ×2 (15:08→21:01)
[2017-07-07 19:51] LABS: VANC TR 23.2 mcg/mL (10.0-20.0)
[2017-07-07] MEDS ORDERED: VANCOMYCIN 1.25 GM in IV DEXTROSE 5% 250 ML IV (21:00)
[2017-07-07] MEDS: traZODone 100 MG TABLET. PO (21:21)
[2017-07-07] MEDS: VANCOMYCIN 1.25 GM in IV 1/2 NORMAL SALINE 250 ML IV (21:21)
[2017-07-07] MEDS: risperiDONE 1 MG TABLET. PO (21:22)
[2017-07-07] MEDS: SERTRALINE 50 MG TABLET. PO (21:22)
[2017-07-08] MEDS: HYDROmorphone 2 MG/ML VIAL IVP ×5 (01:33→20:49)
[2017-07-08] MEDS: MEROPENEM IV Push 1 GM VIAL. IVP ×3 (05:23→22:18)
[2017-07-08] MEDS: VANCOMYCIN 1.25 GM in IV 1/2 NORMAL SALINE 250 ML IV (05:26)
[2017-07-08] MEDS: PARoxetine 10 MG TABLET PO (08:32)
[2017-07-08] MEDS: oxyCODONE ER 10 MG TAB.ER.12H PO ×2 (08:32→20:48)
[2017-07-08] MEDS: DULoxetine HCL 30 MG CAPSULE.DR PO ×2 (08:32→20:48)
[2017-07-08] MEDS: LACTOBACILLUS RHAMNOSUS GG 1 CAPSULE. PO ×2 (08:32→20:47)
[2017-07-08] MEDS: ASCORBIC ACID 500 MG TABLET PO (08:32)
[2017-07-08] MEDS: OXYBUTYNIN CHLORIDE 5 MG TABLET PO ×3 (08:32→20:48)
[2017-07-08] MEDS: GABAPENTIN 300 MG CAPSULE. PO ×4 (08:32→20:47)
[2017-07-08] MEDS: tiZANidine 4 MG TABLET. PO ×2 (08:32→20:48)
[2017-07-08] MEDS: BACLOFEN 10 MG TABLET. PO ×4 (08:32→20:48)
[2017-07-08] MEDS: NICOTINE 14MG PATCH. TD (08:33)
[2017-07-08] MEDS: ACETAMINOPHEN 325 MG TABLET. PO ×3 (08:33→20:47)
[2017-07-08] MEDS: POLYETHYLENE GLYCOL 3350 17 GM PACKET. PO (08:33)
[2017-07-08] MEDS: DOCUSATE SODIUM 100 MG CAPSULE. PO ×2 (08:33→20:47)
[2017-07-08] MEDS: LIDOCAINE (700MG/PATCH) PATCH. TP (08:43)
[2017-07-08] MEDS: ENOXAPARIN 40 MG/0.4 ML SYRINGE. SQ (08:43)
[2017-07-08] MEDS: DRONABINOL 2.5 MG CAPSULE. PO ×2 (10:48→17:16)
[2017-07-08] MEDS ORDERED: LIDOCAINE WITH 8.4% SOD BICARB 3 ML DISP.SYRIN. IJ (15:29)
[2017-07-08] MEDS: LIDOCAINE WITH 8.4% SOD BICARB 3 ML DISP.SYRIN. IJ (15:45)
[2017-07-08] MEDS: VANCOMYCIN 1 GM in IV 1/2 NORMAL SALINE 250 ML IV ×2 (16:14→22:18)
[2017-07-08] MEDS: SERTRALINE 50 MG TABLET. PO (20:47)
[2017-07-08] MEDS: risperiDONE 1 MG TABLET. PO (20:47)
[2017-07-08] MEDS: traZODone 100 MG TABLET. PO (20:48)
[2017-07-09] MEDS: HYDROmorphone 2 MG/ML VIAL IVP ×6 (00:12→21:08)
[2017-07-09] MEDS: VANCOMYCIN 1 GM in IV 1/2 NORMAL SALINE 250 ML IV ×3 (05:54→21:21)
[2017-07-09] MEDS: MEROPENEM IV Push 1 GM VIAL. IVP ×3 (05:55→21:21)
[2017-07-09] MEDS: DOCUSATE SODIUM 100 MG CAPSULE. PO ×2 (08:50→21:00)
[2017-07-09] MEDS: LACTOBACILLUS RHAMNOSUS GG 1 CAPSULE. PO ×2 (08:51→21:10)
[2017-07-09] MEDS: DULoxetine HCL 30 MG CAPSULE.DR PO ×2 (08:52→21:10)
[2017-07-09] MEDS: OXYBUTYNIN CHLORIDE 5 MG TABLET PO ×3 (08:52→21:11)
[2017-07-09] MEDS: BACLOFEN 10 MG TABLET. PO ×4 (08:53→21:11)
[2017-07-09] MEDS: POLYETHYLENE GLYCOL 3350 17 GM PACKET. PO (08:53)
[2017-07-09] MEDS: oxyCODONE ER 10 MG TAB.ER.12H PO ×2 (08:54→21:00)
[2017-07-09] MEDS: ASCORBIC ACID 500 MG TABLET PO (08:55)
[2017-07-09] MEDS: ACETAMINOPHEN 325 MG TABLET. PO ×3 (08:55→21:00)
[2017-07-09] MEDS: PARoxetine 10 MG TABLET PO (08:55)
[2017-07-09] MEDS: tiZANidine 4 MG TABLET. PO ×2 (08:56→21:10)
[2017-07-09] MEDS: ENOXAPARIN 40 MG/0.4 ML SYRINGE. SQ (08:56)
[2017-07-09] MEDS: NICOTINE 14MG PATCH. TD (08:57)
[2017-07-09] MEDS: GABAPENTIN 300 MG CAPSULE. PO ×4 (09:00→22:02)
[2017-07-09] MEDS: LIDOCAINE (700MG/PATCH) PATCH. TP (09:00)
[2017-07-09] MEDS: DRONABINOL 2.5 MG CAPSULE. PO ×2 (12:16→17:09)
[2017-07-09] MEDS: TESTOSTERONE CYPIONATE 200 MG/ML VIAL. IM (13:58)
[2017-07-09] MEDS: LORazepam 1 MG TABLET PO ×2 (14:05→21:11)
[2017-07-09] MEDS: BISACODYL 10 MG SUPP.RECT. PR (17:12)
[2017-07-09] MEDS: SERTRALINE 50 MG TABLET. PO (21:00)
[2017-07-09] MEDS: risperiDONE 1 MG TABLET. PO (21:10)
[2017-07-09] MEDS: traZODone 100 MG TABLET. PO (21:11)
[2017-07-10] MEDS: MEROPENEM IV Push 1 GM VIAL. IVP ×3 (05:15→21:11)
[2017-07-10] MEDS: VANCOMYCIN 1 GM in IV 1/2 NORMAL SALINE 250 ML IV ×3 (05:16→21:11)
[2017-07-10 05:38] LABS: ADD MAN DIFF? NO
[2017-07-10 06:21] LABS: BASO % 1 % (0-3); EOS # 0.4 x10^3/uL (0.0-0.7); EOS % 6 % (0-3); HEMATOCRIT 28.9 % (39.0-53.0); LYMPH # 1.3 x10^3/uL (1.0-4.8); LYMPH % 21 % (24-48); MEAN CORPUSCULAR HEMOGLOBIN 27 pg (25-35); MEAN CORPUSCULAR HGB CONC 35 g/dL (31-37); MEAN CORPUSCULAR VOLUME 78 fL (79-100); MONO # 0.6 x10^3/uL (0.0-1.1); MONO % 9 % (0-9); NEUT % 63 % (31-73); PLATELET COUNT 219 x10^3/uL (140-400); RED BLOOD COUNT 3.72 x10^6/uL (4.30-5.70); RED CELL DISTRIBUTION WIDTH 18.9 % (11.5-14.5); WHITE BLOOD COUNT 6.3 x10^3/uL (4.0-11.0)
[2017-07-10] MEDS: HYDROmorphone 2 MG/ML VIAL IVP ×2 (06:25→10:59)
[2017-07-10 06:34] LABS: ANION GAP 7 (6-14); BLOOD UREA NITROGEN 11 mg/dL (8-26); CARBON DIOXIDE 30 mmol/L (21-32); CHLORIDE 103 mmol/L (98-107); CREATININE 0.6 mg/dL (0.7-1.3); GFR 187.8; GLUCOSE 82 mg/dL (70-99); SODIUM 140 mmol/L (136-145)
[2017-07-10] MEDS: DOCUSATE SODIUM 100 MG CAPSULE. PO ×2 (08:40→21:08)
[2017-07-10] MEDS: LACTOBACILLUS RHAMNOSUS GG 1 CAPSULE. PO ×2 (08:41→21:08)
[2017-07-10] MEDS: BACLOFEN 10 MG TABLET. PO ×4 (08:42→21:08)
[2017-07-10] MEDS: DULoxetine HCL 30 MG CAPSULE.DR PO ×2 (08:42→21:08)
[2017-07-10] MEDS: OXYBUTYNIN CHLORIDE 5 MG TABLET PO ×3 (08:42→21:09)
[2017-07-10] MEDS: POLYETHYLENE GLYCOL 3350 17 GM PACKET. PO (08:43)
[2017-07-10] MEDS: PARoxetine 10 MG TABLET PO (08:44)
[2017-07-10] MEDS: oxyCODONE ER 10 MG TAB.ER.12H PO (08:44)
[2017-07-10] MEDS: ASCORBIC ACID 500 MG TABLET PO (08:45)
[2017-07-10] MEDS: ACETAMINOPHEN 325 MG TABLET. PO ×3 (08:45→21:09)
[2017-07-10] MEDS: ENOXAPARIN 40 MG/0.4 ML SYRINGE. SQ (08:46)
[2017-07-10] MEDS: NICOTINE 14MG PATCH. TD (08:46)
[2017-07-10] MEDS: tiZANidine 4 MG TABLET. PO ×2 (08:46→21:08)
[2017-07-10] MEDS: LIDOCAINE (700MG/PATCH) PATCH. TP (08:47)
[2017-07-10] MEDS: GABAPENTIN 300 MG CAPSULE. PO ×4 (08:48→21:08)
[2017-07-10] MEDS: DRONABINOL 2.5 MG CAPSULE. PO ×2 (10:58→16:02)
[2017-07-10] MEDS: LORazepam 1 MG TABLET PO (13:50)
[2017-07-10] MEDS: HYDROmorphone 2 MG/ML VIAL IM (15:45)
[2017-07-10] MEDS: HYDROmorphone 2 MG/ML VIAL IV (16:02)
[2017-07-10] MEDS: risperiDONE 1 MG TABLET. PO (21:08)
[2017-07-10] MEDS: traZODone 100 MG TABLET. PO (21:08)
[2017-07-10] MEDS: SERTRALINE 50 MG TABLET. PO (21:08)
[2017-07-10] MEDS: oxyCODONE ER 15 MG TAB.ER.12H PO (21:10)
[2017-07-10] MEDS: ALPRAZolam 1 MG TABLET PO (23:06)
[2017-07-10] MEDS: ZOLPIDEM 5 MG TABLET. PO (23:06)
[2017-07-11] MEDS: MEROPENEM IV Push 1 GM VIAL. IVP ×3 (04:53→21:53)
[2017-07-11] MEDS: VANCOMYCIN 1 GM in IV 1/2 NORMAL SALINE 250 ML IV ×3 (04:54→21:53)
[2017-07-11] MEDS: LIDOCAINE (700MG/PATCH) PATCH. TP (09:00)
[2017-07-11] MEDS: DOCUSATE SODIUM 100 MG CAPSULE. PO ×2 (09:00→21:00)
[2017-07-11] MEDS: ENOXAPARIN 40 MG/0.4 ML SYRINGE. SQ (09:00)
[2017-07-11] MEDS: POLYETHYLENE GLYCOL 3350 17 GM PACKET. PO (09:00)
[2017-07-11] MEDS: oxyCODONE ER 15 MG TAB.ER.12H PO (09:17)
[2017-07-11] MEDS: ASCORBIC ACID 500 MG TABLET PO (09:17)
[2017-07-11] MEDS: NICOTINE 14MG PATCH. TD (09:17)
[2017-07-11] MEDS: LACTOBACILLUS RHAMNOSUS GG 1 CAPSULE. PO ×2 (09:17→21:49)
[2017-07-11] MEDS: GABAPENTIN 300 MG CAPSULE. PO ×4 (09:18→21:49)
[2017-07-11] MEDS: DULoxetine HCL 30 MG CAPSULE.DR PO ×2 (09:18→21:50)
[2017-07-11] MEDS: BACLOFEN 10 MG TABLET. PO ×4 (09:18→21:51)
[2017-07-11] MEDS: tiZANidine 4 MG TABLET. PO ×2 (09:18→21:50)
[2017-07-11] MEDS: PARoxetine 10 MG TABLET PO (09:18)
[2017-07-11] MEDS: OXYBUTYNIN CHLORIDE 5 MG TABLET PO ×3 (09:18→21:52)
[2017-07-11] MEDS: ACETAMINOPHEN 325 MG TABLET. PO ×3 (09:18→21:00)
[2017-07-11] MEDS: DRONABINOL 2.5 MG CAPSULE. PO ×2 (11:22→15:55)
[2017-07-11] MEDS: BISACODYL 10 MG SUPP.RECT. PR (13:19)
[2017-07-11] MEDS ORDERED: NALOXONE 0.4 MG/ML VIAL. IV (14:15)
[2017-07-11] MEDS: oxyCODONE IR 5 MG TABLET PO ×2 (15:56→21:49)
[2017-07-11] MEDS: ALPRAZolam 1 MG TABLET PO (15:56)
[2017-07-11] MEDS: ACETAMINOPHEN 500 MG TABLET PO (21:49)
[2017-07-11] MEDS: SERTRALINE 50 MG TABLET. PO (21:49)
[2017-07-11] MEDS: traZODone 100 MG TABLET. PO (21:49)
[2017-07-11] MEDS: risperiDONE 1 MG TABLET. PO (21:50)
[2017-07-11] MEDS: oxyCODONE ER 40 MG TAB.ER.12H PO (21:51)
[2017-07-11] MEDS: oxyCODONE ER 10 MG TAB.ER.12H PO (21:52)
[2017-07-12] MEDS: MEROPENEM IV Push 1 GM VIAL. IVP ×3 (05:09→22:04)
[2017-07-12] MEDS: VANCOMYCIN 1 GM in IV 1/2 NORMAL SALINE 250 ML IV ×3 (05:09→22:10)
[2017-07-12 05:30] LABS: ADD MAN DIFF? NO
[2017-07-12 05:51] LABS: BASO # 0.1 x10^3/uL (0.0-0.2); BASO % 1 % (0-3); EOS # 0.4 x10^3/uL (0.0-0.7); EOS % 7 % (0-3); HEMATOCRIT 31.8 % (39.0-53.0); HEMOGLOBIN 10.3 g/dL (13.0-17.5); LYMPH # 1.4 x10^3/uL (1.0-4.8); LYMPH % 22 % (24-48); MEAN CORPUSCULAR HEMOGLOBIN 28 pg (25-35); MEAN CORPUSCULAR HGB CONC 32 g/dL (31-37); MEAN CORPUSCULAR VOLUME 86 fL (79-100); MONO # 0.5 x10^3/uL (0.0-1.1); MONO % 7 % (0-9); NEUT % 63 % (31-73); PLATELET COUNT 174 x10^3/uL (140-400); RED BLOOD COUNT 3.72 x10^6/uL (4.30-5.70); RED CELL DISTRIBUTION WIDTH 19.6 % (11.5-14.5); WHITE BLOOD COUNT 6.4 x10^3/uL (4.0-11.0)
[2017-07-12 06:00] LABS: ANION GAP 4 (6-14); BLOOD UREA NITROGEN 10 mg/dL (8-26); CARBON DIOXIDE 35 mmol/L (21-32); CHLORIDE 103 mmol/L (98-107); CREATININE 0.7 mg/dL (0.7-1.3); GFR 157.2; GLUCOSE 111 mg/dL (70-99); POTASSIUM 3.8 mmol/L (3.5-5.1); SODIUM 142 mmol/L (136-145)
[2017-07-12] MEDS: GABAPENTIN 300 MG CAPSULE. PO ×4 (07:32→22:03)
[2017-07-12] MEDS: BACLOFEN 10 MG TABLET. PO ×4 (07:32→22:00)
[2017-07-12] MEDS: PARoxetine 10 MG TABLET PO (07:32)
[2017-07-12] MEDS: ACETAMINOPHEN 325 MG TABLET. PO ×3 (07:33→22:02)
[2017-07-12] MEDS: oxyCODONE ER 40 MG TAB.ER.12H PO ×2 (07:33→22:02)
[2017-07-12] MEDS: oxyCODONE ER 10 MG TAB.ER.12H PO ×2 (07:33→22:01)
[2017-07-12] MEDS: ASCORBIC ACID 500 MG TABLET PO (07:33)
[2017-07-12] MEDS: tiZANidine 4 MG TABLET. PO ×2 (07:34→22:02)
[2017-07-12] MEDS: OXYBUTYNIN CHLORIDE 5 MG TABLET PO ×3 (07:34→22:01)
[2017-07-12] MEDS: LACTOBACILLUS RHAMNOSUS GG 1 CAPSULE. PO ×2 (07:34→22:01)
[2017-07-12] MEDS: DULoxetine HCL 30 MG CAPSULE.DR PO ×2 (07:34→22:02)
[2017-07-12] MEDS: oxyCODONE IR 5 MG TABLET PO (07:34)
[2017-07-12] MEDS: NICOTINE 14MG PATCH. TD (07:34)
[2017-07-12] MEDS: POLYETHYLENE GLYCOL 3350 17 GM PACKET. PO (07:35)
[2017-07-12] MEDS: DOCUSATE SODIUM 100 MG CAPSULE. PO ×2 (07:35→22:03)
[2017-07-12] MEDS: LIDOCAINE (700MG/PATCH) PATCH. TP (07:35)
[2017-07-12] MEDS: ENOXAPARIN 40 MG/0.4 ML SYRINGE. SQ (07:35)
[2017-07-12] MEDS: DRONABINOL 2.5 MG CAPSULE. PO ×2 (11:52→17:15)
[2017-07-12] MEDS: BISACODYL 10 MG SUPP.RECT. PR (11:52)
[2017-07-12] MEDS: SORBITOL 70% 30 ML SOLUTION. PO (11:53)
[2017-07-12] MEDS: ALPRAZolam 1 MG TABLET PO (11:53)
[2017-07-12] MEDS: HYDROmorphone 2 MG/ML VIAL IVP (14:31)
[2017-07-12] MEDS: VANCOMYCIN PER PHARMACY MC (15:28)
[2017-07-12] MEDS: risperiDONE 1 MG TABLET. PO (22:02)
[2017-07-12] MEDS: SERTRALINE 50 MG TABLET. PO (22:02)
[2017-07-12] MEDS: traZODone 100 MG TABLET. PO (22:03)
[2017-07-13] MEDS: MEROPENEM IV Push 1 GM VIAL. IVP ×3 (05:10→22:01)
[2017-07-13] MEDS: VANCOMYCIN 1 GM in IV 1/2 NORMAL SALINE 250 ML IV ×2 (05:10→16:00)
[2017-07-13] MEDS: ALTEPLASE 2 MG VIAL INT CAT (05:48)
[2017-07-13 07:02] LABS: ANION GAP 4 (6-14); BLOOD UREA NITROGEN 17 mg/dL (8-26); CALCIUM 8.5 mg/dL (8.5-10.1); CARBON DIOXIDE 36 mmol/L (21-32); CHLORIDE 101 mmol/L (98-107); CREATININE 0.7 mg/dL (0.7-1.3); GFR 157.2; GLUCOSE 105 mg/dL (70-99); POTASSIUM 4.3 mmol/L (3.5-5.1); SODIUM 141 mmol/L (136-145)
[2017-07-13] MEDS: LIDOCAINE (700MG/PATCH) PATCH. TP (09:00)
[2017-07-13] MEDS: SORBITOL 70% 30 ML SOLUTION. PO (09:00)
[2017-07-13] MEDS: POLYETHYLENE GLYCOL 3350 17 GM PACKET. PO (09:00)
[2017-07-13] MEDS: ENOXAPARIN 40 MG/0.4 ML SYRINGE. SQ (09:00)
[2017-07-13] MEDS: PARoxetine 10 MG TABLET PO (09:15)
[2017-07-13] MEDS: BACLOFEN 10 MG TABLET. PO ×5 (09:15→21:58)
[2017-07-13] MEDS: ACETAMINOPHEN 325 MG TABLET. PO ×3 (09:15→21:00)
[2017-07-13] MEDS: LACTOBACILLUS RHAMNOSUS GG 1 CAPSULE. PO ×2 (09:15→21:55)
[2017-07-13] MEDS: NICOTINE 14MG PATCH. TD (09:15)
[2017-07-13] MEDS: OXYBUTYNIN CHLORIDE 5 MG TABLET PO ×3 (09:15→21:58)
[2017-07-13] MEDS: GABAPENTIN 300 MG CAPSULE. PO ×4 (09:16→21:59)
[2017-07-13] MEDS: DOCUSATE SODIUM 100 MG CAPSULE. PO ×2 (09:16→21:58)
[2017-07-13] MEDS: ASCORBIC ACID 500 MG TABLET PO (09:16)
[2017-07-13] MEDS: DULoxetine HCL 30 MG CAPSULE.DR PO ×2 (09:16→22:00)
[2017-07-13] MEDS: BISACODYL 10 MG SUPP.RECT. PR (09:16)
[2017-07-13] MEDS: tiZANidine 4 MG TABLET. PO ×2 (09:17→21:58)
[2017-07-13] MEDS: oxyCODONE ER 10 MG TAB.ER.12H PO (09:19)
[2017-07-13] MEDS: oxyCODONE ER 40 MG TAB.ER.12H PO ×2 (09:19→21:54)
[2017-07-13] MEDS: MAGNESIUM HYDROXIDE 2,400 MG/30 ML ORAL.SUSP. PO (09:20)
[2017-07-13] MEDS: VANCOMYCIN PER PHARMACY MC ×3 (09:21→16:41)
[2017-07-13] MEDS: DRONABINOL 2.5 MG CAPSULE. PO ×2 (11:45→18:11)
[2017-07-13 15:12] LABS: VANC TR 11.5 mcg/mL (10.0-20.0)
[2017-07-13] MEDS: ALPRAZolam 1 MG TABLET PO (18:11)
[2017-07-13] MEDS: ZOLPIDEM 5 MG TABLET. PO (21:58)
[2017-07-13] MEDS: SERTRALINE 50 MG TABLET. PO (21:59)
[2017-07-13] MEDS: risperiDONE 1 MG TABLET. PO (21:59)
[2017-07-13] MEDS: traZODone 100 MG TABLET. PO (22:00)
[2017-07-13] MEDS: VANCOMYCIN 1.25 GM in IV DEXTROSE 5% 250 ML IV (22:00)
[2017-07-14] MEDS: MEROPENEM IV Push 1 GM VIAL. IVP ×3 (05:02→20:52)
[2017-07-14] MEDS: VANCOMYCIN 1.25 GM in IV DEXTROSE 5% 250 ML IV ×3 (05:04→21:01)
[2017-07-14] MEDS: oxyCODONE ER 40 MG TAB.ER.12H PO ×2 (08:50→20:53)
[2017-07-14] MEDS: ASCORBIC ACID 500 MG TABLET PO (08:50)
[2017-07-14] MEDS: LACTOBACILLUS RHAMNOSUS GG 1 CAPSULE. PO ×2 (08:50→20:53)
[2017-07-14] MEDS: ACETAMINOPHEN 325 MG TABLET. PO ×3 (08:51→20:52)
[2017-07-14] MEDS: DULoxetine HCL 30 MG CAPSULE.DR PO ×2 (08:51→20:55)
[2017-07-14] MEDS: DOCUSATE SODIUM 100 MG CAPSULE. PO ×2 (08:51→20:54)
[2017-07-14] MEDS: OXYBUTYNIN CHLORIDE 5 MG TABLET PO ×3 (08:51→20:55)
[2017-07-14] MEDS: tiZANidine 4 MG TABLET. PO ×2 (08:52→20:54)
[2017-07-14] MEDS: PARoxetine 10 MG TABLET PO (08:52)
[2017-07-14] MEDS: SORBITOL 70% 30 ML SOLUTION. PO (08:56)
[2017-07-14] MEDS: POLYETHYLENE GLYCOL 3350 17 GM PACKET. PO (08:59)
[2017-07-14] MEDS: ENOXAPARIN 40 MG/0.4 ML SYRINGE. SQ (08:59)
[2017-07-14] MEDS: LIDOCAINE (700MG/PATCH) PATCH. TP (08:59)
[2017-07-14] MEDS: BACLOFEN 10 MG TABLET. PO ×4 (09:00→20:53)
[2017-07-14] MEDS: DRONABINOL 2.5 MG CAPSULE. PO ×2 (13:04→18:44)
[2017-07-14] MEDS: NICOTINE 14MG PATCH. TD (13:06)
[2017-07-14] MEDS: GABAPENTIN 300 MG CAPSULE. PO ×4 (13:06→20:54)
[2017-07-14] MEDS: VANCOMYCIN PER PHARMACY MC (13:23)
[2017-07-14] MEDS: BISACODYL 10 MG SUPP.RECT. PR (14:55)
[2017-07-14] MEDS: ALPRAZolam 1 MG TABLET PO ×2 (14:58→20:53)
[2017-07-14] MEDS: traZODone 100 MG TABLET. PO (20:52)
[2017-07-14] MEDS: SERTRALINE 50 MG TABLET. PO (20:53)
[2017-07-14] MEDS: risperiDONE 1 MG TABLET. PO (20:53)
[2017-07-14] MEDS: ZOLPIDEM 5 MG TABLET. PO (20:54)
[2017-07-15] MEDS: MEROPENEM IV Push 1 GM VIAL. IVP ×3 (05:01→20:35)
[2017-07-15] MEDS: VANCOMYCIN 1.25 GM in IV DEXTROSE 5% 250 ML IV ×3 (05:27→20:35)
[2017-07-15] MEDS: BISACODYL 10 MG SUPP.RECT. PR (09:00)
[2017-07-15] MEDS: SORBITOL 70% 30 ML SOLUTION. PO (09:00)
[2017-07-15] MEDS: ENOXAPARIN 40 MG/0.4 ML SYRINGE. SQ (09:00)
[2017-07-15] MEDS: LIDOCAINE (700MG/PATCH) PATCH. TP (09:00)
[2017-07-15] MEDS: POLYETHYLENE GLYCOL 3350 17 GM PACKET. PO (09:00)
[2017-07-15] MEDS: BACLOFEN 10 MG TABLET. PO ×4 (09:38→20:35)
[2017-07-15] MEDS: ASCORBIC ACID 500 MG TABLET PO (09:39)
[2017-07-15] MEDS: tiZANidine 4 MG TABLET. PO ×2 (09:39→20:34)
[2017-07-15] MEDS: oxyCODONE ER 40 MG TAB.ER.12H PO ×2 (09:39→20:33)
[2017-07-15] MEDS: GABAPENTIN 300 MG CAPSULE. PO ×4 (09:39→20:33)
[2017-07-15] MEDS: DOCUSATE SODIUM 100 MG CAPSULE. PO ×2 (09:39→20:34)
[2017-07-15] MEDS: PARoxetine 10 MG TABLET PO (09:39)
[2017-07-15] MEDS: DULoxetine HCL 30 MG CAPSULE.DR PO ×2 (09:40→20:34)
[2017-07-15] MEDS: LACTOBACILLUS RHAMNOSUS GG 1 CAPSULE. PO ×2 (09:40→20:34)
[2017-07-15] MEDS: ACETAMINOPHEN 325 MG TABLET. PO ×3 (09:40→20:33)
[2017-07-15] MEDS: OXYBUTYNIN CHLORIDE 5 MG TABLET PO ×3 (09:40→20:35)
[2017-07-15] MEDS: NICOTINE 14MG PATCH. TD (09:40)
[2017-07-15] MEDS: DRONABINOL 2.5 MG CAPSULE. PO ×2 (12:30→17:11)
[2017-07-15] MEDS: ALPRAZolam 1 MG TABLET PO ×2 (12:31→20:33)
[2017-07-15] MEDS: VANCOMYCIN PER PHARMACY MC (12:39)
[2017-07-15] MEDS: HYDROmorphone 2 MG/ML VIAL IVP (18:05)
[2017-07-15] MEDS: SERTRALINE 50 MG TABLET. PO (20:33)
[2017-07-15] MEDS: ZOLPIDEM 5 MG TABLET. PO (20:34)
[2017-07-15] MEDS: traZODone 100 MG TABLET. PO (20:34)
[2017-07-15] MEDS: risperiDONE 1 MG TABLET. PO (21:00)
[2017-07-16] MEDS: MEROPENEM IV Push 1 GM VIAL. IVP ×3 (05:18→20:48)
[2017-07-16] MEDS: VANCOMYCIN 1.25 GM in IV DEXTROSE 5% 250 ML IV ×3 (05:19→20:48)
[2017-07-16 05:33] LABS: ADD MAN DIFF? NO
[2017-07-16 05:58] LABS: ANION GAP 6 (6-14); BLOOD UREA NITROGEN 13 mg/dL (8-26); CALCIUM 8.4 mg/dL (8.5-10.1); CARBON DIOXIDE 34 mmol/L (21-32); CHLORIDE 100 mmol/L (98-107); CREATININE 0.7 mg/dL (0.7-1.3); GFR 157.2; GLUCOSE 125 mg/dL (70-99); POTASSIUM 4.1 mmol/L (3.5-5.1); SODIUM 140 mmol/L (136-145)
[2017-07-16 06:03] LABS: BASO # 0.1 x10^3/uL (0.0-0.2); BASO % 1 % (0-3); EOS # 0.5 x10^3/uL (0.0-0.7); EOS % 9 % (0-3); HEMATOCRIT 35.5 % (39.0-53.0); HEMOGLOBIN 11.3 g/dL (13.0-17.5); LYMPH # 1.1 x10^3/uL (1.0-4.8); LYMPH % 22 % (24-48); MEAN CORPUSCULAR HEMOGLOBIN 27 pg (25-35); MEAN CORPUSCULAR HGB CONC 32 g/dL (31-37); MEAN CORPUSCULAR VOLUME 84 fL (79-100); MONO # 0.4 x10^3/uL (0.0-1.1); MONO % 9 % (0-9); NEUT % 59 % (31-73); PLATELET COUNT 236 x10^3/uL (140-400); RED BLOOD COUNT 4.25 x10^6/uL (4.30-5.70)
[2017-07-16] MEDS: ENOXAPARIN 40 MG/0.4 ML SYRINGE. SQ (09:00)
[2017-07-16] MEDS: LIDOCAINE (700MG/PATCH) PATCH. TP (09:00)
[2017-07-16] MEDS: POLYETHYLENE GLYCOL 3350 17 GM PACKET. PO (09:00)
[2017-07-16] MEDS: SORBITOL 70% 30 ML SOLUTION. PO (09:00)
[2017-07-16] MEDS: BISACODYL 10 MG SUPP.RECT. PR (09:00)
[2017-07-16] MEDS: DOCUSATE SODIUM 100 MG CAPSULE. PO ×2 (09:00→21:00)
[2017-07-16] MEDS: GABAPENTIN 300 MG CAPSULE. PO ×4 (09:09→20:50)
[2017-07-16] MEDS: BACLOFEN 10 MG TABLET. PO ×4 (09:10→21:42)
[2017-07-16] MEDS: PARoxetine 10 MG TABLET PO (09:10)
[2017-07-16] MEDS: NICOTINE 14MG PATCH. TD (09:11)
[2017-07-16] MEDS: tiZANidine 4 MG TABLET. PO ×2 (09:11→20:49)
[2017-07-16] MEDS: ASCORBIC ACID 500 MG TABLET PO (09:11)
[2017-07-16] MEDS: oxyCODONE ER 40 MG TAB.ER.12H PO ×2 (09:11→20:49)
[2017-07-16] MEDS: OXYBUTYNIN CHLORIDE 5 MG TABLET PO ×3 (09:11→20:49)
[2017-07-16] MEDS: ACETAMINOPHEN 325 MG TABLET. PO ×3 (09:11→20:50)
[2017-07-16] MEDS: DULoxetine HCL 30 MG CAPSULE.DR PO ×2 (09:12→20:48)
[2017-07-16] MEDS: LACTOBACILLUS RHAMNOSUS GG 1 CAPSULE. PO ×2 (09:12→20:50)
[2017-07-16] MEDS: DRONABINOL 2.5 MG CAPSULE. PO ×2 (10:55→17:27)
[2017-07-16] MEDS: HYDROmorphone 2 MG/ML VIAL IV (11:47)
[2017-07-16] MEDS: VANCOMYCIN PER PHARMACY MC (12:54)
[2017-07-16] MEDS: TESTOSTERONE CYPIONATE 200 MG/ML VIAL. IM (13:23)
[2017-07-16] MEDS: HYDROmorphone 2 MG/ML VIAL IVP (15:33)
[2017-07-16] MEDS: ALPRAZolam 1 MG TABLET PO (17:27)
[2017-07-16] MEDS: traZODone 100 MG TABLET. PO (20:49)
[2017-07-16] MEDS: SERTRALINE 50 MG TABLET. PO (20:50)
[2017-07-16] MEDS: risperiDONE 1 MG TABLET. PO (20:50)
[2017-07-16] MEDS: ZOLPIDEM 5 MG TABLET. PO (20:50)
[2017-07-17] MEDS: MEROPENEM IV Push 1 GM VIAL. IVP ×3 (05:04→23:00)
[2017-07-17] MEDS: VANCOMYCIN 1.25 GM in IV DEXTROSE 5% 250 ML IV ×3 (05:04→22:59)
[2017-07-17 05:17] LABS: ADD MAN DIFF? NO
[2017-07-17 05:36] LABS: BASO % 1 % (0-3); EOS # 0.5 x10^3/uL (0.0-0.7); EOS % 10 % (0-3); HEMATOCRIT 33.9 % (39.0-53.0); HEMOGLOBIN 10.9 g/dL (13.0-17.5); LYMPH # 1.2 x10^3/uL (1.0-4.8); LYMPH % 25 % (24-48); MEAN CORPUSCULAR HEMOGLOBIN 27 pg (25-35); MEAN CORPUSCULAR HGB CONC 32 g/dL (31-37); MEAN CORPUSCULAR VOLUME 85 fL (79-100); MONO # 0.4 x10^3/uL (0.0-1.1); MONO % 9 % (0-9); NEUT # 2.7 x10^3uL (1.8-7.7); NEUT % 56 % (31-73); PLATELET COUNT 221 x10^3/uL (140-400); RED CELL DISTRIBUTION WIDTH 19.1 % (11.5-14.5); WHITE BLOOD COUNT 4.8 x10^3/uL (4.0-11.0)
[2017-07-17 05:46] LABS: ANION GAP 5 (6-14); BLOOD UREA NITROGEN 12 mg/dL (8-26); CALCIUM 8.5 mg/dL (8.5-10.1); CARBON DIOXIDE 35 mmol/L (21-32); CHLORIDE 100 mmol/L (98-107); CREATININE 0.7 mg/dL (0.7-1.3); GFR 157.2; GLUCOSE 116 mg/dL (70-99); POTASSIUM 3.8 mmol/L (3.5-5.1); SODIUM 140 mmol/L (136-145)
[2017-07-17] MEDS: ENOXAPARIN 40 MG/0.4 ML SYRINGE. SQ (09:00)
[2017-07-17] MEDS: LIDOCAINE (700MG/PATCH) PATCH. TP (09:00)
[2017-07-17] MEDS: SORBITOL 70% 30 ML SOLUTION. PO ×2 (09:00→11:27)
[2017-07-17] MEDS: BISACODYL 10 MG SUPP.RECT. PR (09:00)
[2017-07-17] MEDS: POLYETHYLENE GLYCOL 3350 17 GM PACKET. PO ×3 (09:00→23:34)
[2017-07-17] MEDS: tiZANidine 4 MG TABLET. PO ×2 (10:03→23:01)
[2017-07-17] MEDS: GABAPENTIN 300 MG CAPSULE. PO ×4 (10:03→23:01)
[2017-07-17] MEDS: PARoxetine 10 MG TABLET PO (10:03)
[2017-07-17] MEDS: DOCUSATE SODIUM 100 MG CAPSULE. PO ×2 (10:04→23:02)
[2017-07-17] MEDS: ASCORBIC ACID 500 MG TABLET PO (10:04)
[2017-07-17] MEDS: LACTOBACILLUS RHAMNOSUS GG 1 CAPSULE. PO ×2 (10:04→23:01)
[2017-07-17] MEDS: ACETAMINOPHEN 325 MG TABLET. PO ×3 (10:04→23:01)
[2017-07-17] MEDS: OXYBUTYNIN CHLORIDE 5 MG TABLET PO ×3 (10:05→23:02)
[2017-07-17] MEDS: oxyCODONE ER 40 MG TAB.ER.12H PO ×2 (10:05→23:01)
[2017-07-17] MEDS: NICOTINE 14MG PATCH. TD (10:05)
[2017-07-17] MEDS: BACLOFEN 10 MG TABLET. PO ×4 (10:05→23:00)
[2017-07-17] MEDS: DULoxetine HCL 30 MG CAPSULE.DR PO ×2 (10:05→23:00)
[2017-07-17] MEDS: DRONABINOL 2.5 MG CAPSULE. PO ×2 (11:20→17:52)
[2017-07-17] MEDS: ONDANSETRON PF 4 MG/2 ML VIAL. IV ×2 (13:24→23:49)
[2017-07-17] MEDS: VANCOMYCIN PER PHARMACY MC (14:29)
[2017-07-17] MEDS: FAMOTIDINE 20 MG/2 ML VIAL IVP (15:55)
[2017-07-17] MEDS: ALPRAZolam 1 MG TABLET PO (23:00)
[2017-07-17] MEDS: ZOLPIDEM 5 MG TABLET. PO (23:01)
[2017-07-17] MEDS: risperiDONE 1 MG TABLET. PO (23:02)
[2017-07-17] MEDS: traZODone 100 MG TABLET. PO (23:02)
[2017-07-17] MEDS: SERTRALINE 50 MG TABLET. PO (23:02)
[2017-07-17] MEDS: MAGNESIUM HYDROXIDE 2,400 MG/30 ML ORAL.SUSP. PO (23:33)
[2017-07-18] MEDS: MEROPENEM IV Push 1 GM VIAL. IVP ×3 (05:19→21:39)
[2017-07-18] MEDS: VANCOMYCIN 1.25 GM in IV DEXTROSE 5% 250 ML IV ×3 (05:20→21:39)
[2017-07-18 05:39] LABS: ADD MAN DIFF? NO
[2017-07-18 05:56] LABS: BASO % 1 % (0-3); EOS # 0.4 x10^3/uL (0.0-0.7); EOS % 10 % (0-3); HEMATOCRIT 35.4 % (39.0-53.0); HEMOGLOBIN 11.3 g/dL (13.0-17.5); LYMPH % 23 % (24-48); MEAN CORPUSCULAR HEMOGLOBIN 27 pg (25-35); MEAN CORPUSCULAR HGB CONC 32 g/dL (31-37); MEAN CORPUSCULAR VOLUME 84 fL (79-100); MONO # 0.5 x10^3/uL (0.0-1.1); MONO % 11 % (0-9); NEUT # 2.4 x10^3uL (1.8-7.7); NEUT % 55 % (31-73); PLATELET COUNT 233 x10^3/uL (140-400); RED BLOOD COUNT 4.21 x10^6/uL (4.30-5.70); RED CELL DISTRIBUTION WIDTH 18.5 % (11.5-14.5); WHITE BLOOD COUNT 4.4 x10^3/uL (4.0-11.0)
[2017-07-18 06:40] LABS: ANION GAP 4 (6-14); BLOOD UREA NITROGEN 13 mg/dL (8-26); CALCIUM 8.4 mg/dL (8.5-10.1); CARBON DIOXIDE 35 mmol/L (21-32); CHLORIDE 100 mmol/L (98-107); CREATININE 0.8 mg/dL (0.7-1.3); GFR 134.7; GLUCOSE 83 mg/dL (70-99); POTASSIUM 4.5 mmol/L (3.5-5.1); SODIUM 139 mmol/L (136-145)
[2017-07-18] MEDS: LIDOCAINE (700MG/PATCH) PATCH. TP (09:00)
[2017-07-18] MEDS: ENOXAPARIN 40 MG/0.4 ML SYRINGE. SQ (09:00)
[2017-07-18] MEDS: SORBITOL 70% 30 ML SOLUTION. PO (09:00)
[2017-07-18] MEDS: PARoxetine 10 MG TABLET PO (10:32)
[2017-07-18] MEDS: PANTOPRAZOLE 40 MG TABLET.DR. PO (10:33)
[2017-07-18] MEDS: tiZANidine 4 MG TABLET. PO ×2 (10:33→21:42)
[2017-07-18] MEDS: LACTOBACILLUS RHAMNOSUS GG 1 CAPSULE. PO ×2 (10:33→21:43)
[2017-07-18] MEDS: GABAPENTIN 300 MG CAPSULE. PO ×4 (10:33→21:40)
[2017-07-18] MEDS: OXYBUTYNIN CHLORIDE 5 MG TABLET PO ×3 (10:33→21:42)
[2017-07-18] MEDS: NICOTINE 14MG PATCH. TD (10:33)
[2017-07-18] MEDS: DULoxetine HCL 30 MG CAPSULE.DR PO ×2 (10:33→21:40)
[2017-07-18] MEDS: BACLOFEN 10 MG TABLET. PO ×4 (10:34→21:41)
[2017-07-18] MEDS: oxyCODONE ER 40 MG TAB.ER.12H PO ×2 (10:34→21:43)
[2017-07-18] MEDS: ACETAMINOPHEN 325 MG TABLET. PO ×3 (10:34→21:55)
[2017-07-18] MEDS: BISACODYL 10 MG SUPP.RECT. PR (10:35)
[2017-07-18] MEDS: ASCORBIC ACID 500 MG TABLET PO (10:35)
[2017-07-18] MEDS: DOCUSATE SODIUM 100 MG CAPSULE. PO ×2 (10:35→21:41)
[2017-07-18] MEDS: DRONABINOL 2.5 MG CAPSULE. PO ×2 (12:17→18:02)
[2017-07-18] MEDS: PROCHLORPERAZINE 10 MG/2 ML VIAL. IV (12:24)
[2017-07-18] MEDS: VANCOMYCIN PER PHARMACY MC (15:47)
[2017-07-18] MEDS: traZODone 100 MG TABLET. PO (21:41)
[2017-07-18] MEDS: risperiDONE 1 MG TABLET. PO (21:41)
[2017-07-18] MEDS: SERTRALINE 50 MG TABLET. PO (21:42)
[2017-07-18] MEDS: ALPRAZolam 1 MG TABLET PO (21:42)
[2017-07-19] MEDS: VANCOMYCIN 1.25 GM in IV DEXTROSE 5% 250 ML IV ×2 (06:07→14:04)
[2017-07-19] MEDS: MEROPENEM IV Push 1 GM VIAL. IVP ×2 (06:08→14:03)
[2017-07-19 06:31] LABS: ADD MAN DIFF? NO
[2017-07-19 06:34] LABS: BASO % 1 % (0-3); EOS # 0.4 x10^3/uL (0.0-0.7); EOS % 9 % (0-3); HEMATOCRIT 35.4 % (39.0-53.0); HEMOGLOBIN 11.4 g/dL (13.0-17.5); LYMPH # 0.7 x10^3/uL (1.0-4.8); LYMPH % 15 % (24-48); MEAN CORPUSCULAR HEMOGLOBIN 27 pg (25-35); MEAN CORPUSCULAR HGB CONC 32 g/dL (31-37); MEAN CORPUSCULAR VOLUME 85 fL (79-100); MONO # 0.6 x10^3/uL (0.0-1.1); MONO % 12 % (0-9); NEUT # 2.9 x10^3uL (1.8-7.7); NEUT % 62 % (31-73); PLATELET COUNT 196 x10^3/uL (140-400); RED BLOOD COUNT 4.17 x10^6/uL (4.30-5.70); RED CELL DISTRIBUTION WIDTH 18.8 % (11.5-14.5); WHITE BLOOD COUNT 4.6 x10^3/uL (4.0-11.0)
[2017-07-19 06:42] LABS: ANION GAP 5 (6-14); BLOOD UREA NITROGEN 12 mg/dL (8-26); CALCIUM 8.1 mg/dL (8.5-10.1); CARBON DIOXIDE 34 mmol/L (21-32); CHLORIDE 101 mmol/L (98-107); CREATININE 0.7 mg/dL (0.7-1.3); GFR 157.2; GLUCOSE 75 mg/dL (70-99); POTASSIUM 4.2 mmol/L (3.5-5.1); SODIUM 140 mmol/L (136-145)
[2017-07-19] MEDS: PANTOPRAZOLE 40 MG TABLET.DR. PO (07:52)
[2017-07-19] MEDS: HYDROmorphone 2 MG/ML VIAL IVP (08:47)
[2017-07-19] MEDS: LIDOCAINE (700MG/PATCH) PATCH. TP (09:00)
[2017-07-19] MEDS: ENOXAPARIN 40 MG/0.4 ML SYRINGE. SQ (09:00)
[2017-07-19] MEDS: SORBITOL 70% 30 ML SOLUTION. PO (09:00)
[2017-07-19] MEDS: BISACODYL 10 MG SUPP.RECT. PR (09:00)
[2017-07-19] MEDS: oxyCODONE ER 40 MG TAB.ER.12H PO (09:27)
[2017-07-19] MEDS: GABAPENTIN 300 MG CAPSULE. PO ×2 (09:27→13:18)
[2017-07-19] MEDS: DOCUSATE SODIUM 100 MG CAPSULE. PO (09:27)
[2017-07-19] MEDS: DULoxetine HCL 30 MG CAPSULE.DR PO (09:27)
[2017-07-19] MEDS: OXYBUTYNIN CHLORIDE 5 MG TABLET PO ×2 (09:28→13:18)
[2017-07-19] MEDS: PARoxetine 10 MG TABLET PO (09:28)
[2017-07-19] MEDS: tiZANidine 4 MG TABLET. PO (09:28)
[2017-07-19] MEDS: BACLOFEN 10 MG TABLET. PO ×2 (09:28→13:18)
[2017-07-19] MEDS: ASCORBIC ACID 500 MG TABLET PO (09:29)
[2017-07-19] MEDS: LACTOBACILLUS RHAMNOSUS GG 1 CAPSULE. PO (09:29)
[2017-07-19] MEDS: NICOTINE 14MG PATCH. TD (09:29)
[2017-07-19] MEDS: POLYETHYLENE GLYCOL 3350 17 GM PACKET. PO (09:30)
[2017-07-19] MEDS: ACETAMINOPHEN 325 MG TABLET. PO ×2 (09:35→13:19)
[2017-07-19] MEDS: DRONABINOL 2.5 MG CAPSULE. PO (11:28)
== END 2017-07-19 16:30 | disposition home health service (06) | DRG 570 ==
LOC: 5 NORTH 21:00
PROVIDERS: Internal Medicine Hematology & Oncology
PROC: 0JB90ZZ Excision of Buttock Subcutaneous Tissue and Fascia, Open Approach (ICD-10-PCS; principal; 2017-06-28 13:00)
PROC: 02HV33Z Insertion of Infusion Device into Superior Vena Cava, Percutaneous Approach (ICD-10-PCS; 2017-06-28 13:13)
PROC: B5181ZA Fluoroscopy of Superior Vena Cava using Low Osmolar Contrast, Guidance (ICD-10-PCS; 2017-06-28 13:13)
PROC: B548ZZA Ultrasonography of Superior Vena Cava, Guidance (ICD-10-PCS; 2017-06-28 13:13)
DX: L89.154 Pressure ulcer of sacral region, stage 4 (principal); L89.210 Pressure ulcer of right hip, unstageable; G82.20 Paraplegia, unspecified; I95.9 Hypotension, unspecified; F11.20 Opioid dependence, uncomplicated; L89.619 Pressure ulcer of right heel, unspecified stage; L89.629 Pressure ulcer of left heel, unspecified stage; E66.9 Obesity, unspecified; Z68.33 Body mass index [BMI] 33.0-33.9, adult; F17.200 Nicotine dependence, unspecified, uncomplicated; F32.9 Major depressive disorder, single episode, unspecified; F41.9 Anxiety disorder, unspecified; G47.00 Insomnia, unspecified; G89.29 Other chronic pain; K21.9 Gastro-esophageal reflux disease without esophagitis; K59.00 Constipation, unspecified; L89.314 Pressure ulcer of right buttock, stage 4; L89.324 Pressure ulcer of left buttock, stage 4; Z74.01 Bed confinement status; Z87.440 Personal history of urinary (tract) infections; Z88.0 Allergy status to penicillin; Z91.19 Patient's noncompliance with other medical treatment and regimen; B95.62 Methicillin resistant Staphylococcus aureus infection as the cause of diseases classified elsewhere
CPT/HCPCS: 36415; 36569; 74018; 76937; 77001; 80048; 80053; 80069; 80202; 85025; 85027; 85651; 87641; 93971; 97110-GP; 97161-GP; 97530-GP; C1751; C1892; G0238; J0780; J1071; J1100; J1170; J1650; J1885; J2185; J2250; J2270; J2370; J2405; J2704; J2997; J3010; J3370; J7030; Q0167; S0028